=== PATIENT | male | born 1990 ===

== ENCOUNTER 2016-12-15 12:28 | Emergency (ER) | payer MEDICAID ==
[2016-12-15 12:41] VITALS: BP 125/83; PULSE 66; RESP 18; TEMP 97.7; O2SAT 98
--- NOTE | 2016-12-15 12:53 | ED PDOC ---
HPI: General Adult Time Seen by Provider: 12/15/16 12:35 History Per: Patient Additional Complaint(s): Pt. states for the past 2 weeks he's had atraumatic pain and numbness to the R middle and ring fingers. Pt. states pain is intermittent and seems to be worse at night. Further states that when he was 19 y/o he was diagnosed with carpal tunnel syndrome on the same hand but required no surgical treatment or physical therapy. Pt. is R hand dominant. Symptoms are present on both dorsal and palmar sides of hand. Denies fever, rash, trauma. Past Medical History Reviewed: Historical Data, Nursing Documentation, Vital Signs Vital Signs: Last Vital Signs Temp 97.7 F 12/15/16 12:39 Pulse 66 12/15/16 12:39 Resp 18 12/15/16 12:39 BP 125/83 12/15/16 12:39 Pulse Ox 98 12/15/16 12:39 - Family History Family History: States: No Known Family Hx - Home Medications Home Medications: Ambulatory Orders Medication Instructions Recorded Clotrimazole/Betamethasone Dip 1 cre TP BID #1 unit 02/08/16 [Clotrimazole-Betamethasone Dipropionate 0.05%] Naproxen [Naprosyn] 500 mg PO BID PRN #30 tab 12/15/16 - Allergies Allergies/Adverse Reactions: Allergies Allergy/AdvReac Type Severity Reaction Status Date / Time No Known Allergies Allergy Verified 02/08/16 20:52 Review of Systems ROS Statement: Except As Marked, All Systems Reviewed And Found Negative Physical Exam - Physical Exam Appears: Positive for: Well, Non-toxic, No Acute Distress Skin: Positive for: Normal Color, Warm. Negative for: Rash Extremity: Positive for: Normal ROM, Capillary Refill (< 2 seconds of RUE), Other (R hand and fingers without swelling, tenderness, erythema, warmth, break in skin integrity, rash; negative phalen's and tinel's sign) - ECG O2 Sat by Pulse Oximetry: 98 - Progress ED Course And Treament: Pt. instructed to f/u with Dr. Tate, hand specialist, for further evaluation. Also told that he may require MRI or nerve conduction studies. Disposition - Clinical Impression Clinical Impression: Paresthesias in right hand - Patient ED Disposition Is Patient to be Admitted: No - Disposition Referrals: Kiran Tate MD [Staff Provider] - [facility] [Outside] Cameron Andrade MD [Medical Doctor] - Disposition: Routine/Home Disposition Time: 12:50 Condition: STABLE Prescriptions: Naproxen [Naprosyn] 500 mg PO BID PRN #30 tab PRN Reason: Pain Instructions: Paresthesia (ED) Print Language: YI
== END 2016-12-15 13:07 | disposition home or self-care (01) ==
LOC: H.ER 12:28
DX: R20.9 Unspecified disturbances of skin sensation (principal)

== ENCOUNTER 2017-01-12 12:36 | Emergency (ER) | payer MEDICAID ==
[2017-01-12 13:00] VITALS: BP 118/57; PULSE 71; RESP 18; TEMP 98.2; O2SAT 97
--- NOTE | 2017-01-12 13:37 | ED PDOC ---
Lower Extremity Pain/Injury Time Seen by Provider: 01/12/17 13:02 Chief Complaint (Nursing): Lower Extremity Problem/Injury Chief Complaint (Provider): Right foot pain History Per: Patient History/Exam Limitations: no limitations Onset/Duration Of Symptoms: Days (2) Current Symptoms Are (Timing): Still Present Severity: Moderate Additional Complaint(s): Nadir Craig is a 26 y/o male presenting to the ER on 01/12/2017 with complaints of right foot pain x2 days. Patient states pain, which he rates as a 5/10, originated after a pile of wood fell on his foot while at work. He further states the pain gradually began to resolve on its own after he took Ibuprofen two days ago, but spontaneously appeared again, prompting him to seek medical evaluation. Patient reports pain is localized to his heel with no radiation to his ankle. Patient did not take any pain medications prior to arrival. Past Medical History Reviewed: Historical Data, Nursing Documentation, Vital Signs Vital Signs: Last Vital Signs Temp 98.2 F 01/12/17 12:57 Pulse 71 01/12/17 12:57 Resp 18 01/12/17 12:57 BP 118/57 L 01/12/17 12:57 Pulse Ox 97 01/12/17 12:57 - Medical History PMH: No Chronic Diseases - Surgical History Surgical History: No Surg Hx - Family History Family History: States: No Known Family Hx - Living Arrangements Living Arrangements: With Family - Social History Current smoker - smoking cessation education provided: No Alcohol: None Drugs: Denies - Home Medications Home Medications: Ambulatory Orders Medication Instructions Recorded Clotrimazole/Betamethasone Dip 1 cre TP BID #1 unit 02/08/16 [Clotrimazole-Betamethasone Dipropionate 0.05%] Naproxen [Naprosyn] 500 mg PO BID PRN #30 tab 12/15/16 - Allergies Allergies/Adverse Reactions: Allergies Allergy/AdvReac Type Severity Reaction Status Date / Time No Known Allergies Allergy Verified 01/12/17 12:56 Wells Criteria for PE - Wells Criteria for Pulmonary Embolism Clinical Signs and Symptoms of DVT: No P.E is #1 Diagnosis, or Equally Likely: No Heart Rate >100: No Immobilization at least 3 days;Surgery previous 4 weeks: No Previous, objectively diagnosed PE or DVT: No Hemoptysis: No Malignancy w/treatment within 6 months, or palliative: No Total Score: 0 Review of Systems ROS Statement: Except As Marked, All Systems Reviewed And Found Negative Musculoskeletal: Positive for: Foot Pain ((+) right foot ) Neurological: Negative for: Weakness, Numbness Physical Exam - Reviewed Nursing Documentation Reviewed: Yes Vital Signs Reviewed: Yes - Physical Exam Appears: Positive for: Non-toxic, No Acute Distress Skin: Positive for: Normal Color Eye Exam: Positive for: Normal appearance Extremity: Positive for: Normal ROM, Tenderness ((+) ttp to right heel region; nontender to dorsal aspect ), Other (resolving ecchymosis to right foot). Negative for: Deformity, Swelling Neurologic/Psych: Positive for: Alert, Oriented, Gait (steady ). Negative for: Motor/Sensory Deficits - ECG O2 Sat by Pulse Oximetry: 97 Pulse Ox Interpretation: Normal - Other Rad Right foot x-ray X-Ray: Interpreted by Me, Viewed By Me X-Ray Interpretation: no fx, no dis Medical Decision Making Medical Decision Makin:02 Initial Impression- Right foot pain; r/o fracture Initial Plan- * XR Right foot * Ibuprofen 600 mg PO 14:36: XR reviewed, shows no acute findings. Pt will be discharged routinely. Encouraged pt to elevate foot while resting, apply ice, and use Motrin if needed. Documented by Darrel Gonzales, acting as a scribe for Kala Grissom PA-C All medical record entries made by the Scribe were at my direction and personally dictated by me. I have reviewed the chart and agree that the record accurately reflects my personal performance of the history, physical exam, medical decision making, and the department course for this patient. I have also personally directed, reviewed, and agree with the discharge instructions and disposition. Procedures - Splinting Location: right foot Pre-Made Type: eduardo wrap, ortho shoe Pre-Proc Neuro Vasc Exam: normal Post-Proc Neuro Vasc Exam: normal Disposition - Clinical Impression Clinical Impression: Foot sprain, Foot contusion - Patient ED Disposition Is Patient to be Admitted: No Counseled Patient/Family Regarding: Studies Performed, Diagnosis, Need For Followup - Disposition Referrals: [facility] [Outside] Disposition: Routine/Home Disposition Time: 14:46 Condition: STABLE Additional Instructions: Ice, rest and elevate affected area. Take 3 over the counter 200 mg motrin tabs every 6 hrs for pain relief. Follow up with podiatry clinic in 2-3 days. Instructions: Foot Sprain (ED), Foot Contusion (ED)
--- NOTE | 2017-01-12 15:04 | RAD ---
PROCEDURE: Right foot dated 01/12/2017. HISTORY: trauma COMPARISON: None. FINDINGS: BONES: No evidence of acute displaced fracture nor dislocation. The osseous structures appear intact. JOINTS: Slight hammertoe deformities of the 2nd and to a lesser degree 3rd and 4th digits SOFT TISSUES: Normal. OTHER FINDINGS: None. IMPRESSION: No acute fracture seen.
== END 2017-01-12 14:55 | disposition home or self-care (01) ==
LOC: H.ER 12:36
DX: S90.31XA Contusion of right foot, initial encounter (principal); S93.601A Unspecified sprain of right foot, initial encounter; W22.8XXA Striking against or struck by other objects, initial encounter; Y99.0 Civilian activity done for income or pay

== ENCOUNTER 2017-01-23 20:24 | Emergency (ER) | payer MEDICAID ==
[2017-01-23 20:42] VITALS: BP 155/93; O2SAT 99
[2017-01-23] MEDS ORDERED: Sodium Chloride 0.9% 1,000 ML IV STA (21:16)
[2017-01-23 21:47] LABS: VENOUS BLOOD GAS PCO2 40 mmHg (40-60); VENOUS BLOOD PH 7.43 (7.32-7.43)
[2017-01-23 21:50] LABS: BASO % 0.4 % (0.0-2.0); EOS % 0.1 % (0.0-4.0); HEMATOCRIT 46.2 % (35.0-51.0); LYMPH # 1.1 K/uL (1.0-4.3); LYMPH % 16.3 % (20.0-40.0); MEAN CELL VOLUME 86.8 fl (80.0-94.0); MEAN CORPUSCULAR HEMOGLOBIN 29.4 pg (27.0-31.0); MEAN CORPUSCULAR HGB CONC 33.9 g/dL (33.0-37.0); MEAN PLATELET VOLUME 7.4 fl (7.2-11.7); MONO # 0.7 K/uL (0.0-0.8); MONO % 10.8 % (0.0-10.0); NEUT # 4.9 K/uL (1.8-7.0); NEUT % 72.4 % (50.0-75.0); NRBC % 0.1 % (0.0-0.0); RED CELL DISTRIBUTION WIDTH 13.2 % (11.5-14.5); WHITE BLOOD COUNT 6.8 K/uL (4.8-10.8)
[2017-01-23 22:05] LABS: ALB/GLOB RATIO 1.3 (1.0-2.1); ALKALINE PHOSPHATASE 53 U/L (38-126); ALT/SGPT 42 U/L (21-72); AST/SGOT 27 U/L (17-59); BILIRUBIN,TOTAL 0.4 mg/dl (0.2-1.3); BLOOD UREA NITROGEN 14 mg/dl (9-20); CALCIUM 9.1 mg/dL (8.4-10.2); CARBON DIOXIDE 26 mmol/L (22-30); CHLORIDE 101 mmol/L (98-107); GFR AFRICAN-AMERICAN > 60; GLUCOSE,RANDOM 124 mg/dL (75-110); POTASSIUM 3.6 MMOL/L (3.6-5.0); SODIUM 138 mmol/l (132-148); TOTAL PROTEIN 7.3 G/DL (6.3-8.2)
--- NOTE | 2017-01-23 22:09 | ED PDOC ---
HPI: General Adult Time Seen by Provider: 01/23/17 20:48 Chief Complaint (Nursing): Eye Problem History Per: Patient Additional Complaint(s): Pt. states for the past week he's had b/l eye redness and discharge. Over the past 2 days he's developed fever along with nasal congestion. Denies cough, facial pain, headache, rash, abdominal pain, N/V/D, eye pain, eye trauma, contact lens use. Past Medical History Reviewed: Historical Data, Nursing Documentation, Vital Signs Vital Signs: Last Vital Signs Temp 102 F H 01/23/17 21:24 Pulse 119 H 01/23/17 20:37 Resp 16 01/23/17 20:37 BP 155/93 H 01/23/17 20:37 Pulse Ox 99 01/23/17 22:42 - Family History Family History: States: No Known Family Hx - Home Medications Home Medications: Ambulatory Orders Medication Instructions Recorded Clotrimazole/Betamethasone Dip 1 cre TP BID #1 unit 02/08/16 [Clotrimazole-Betamethasone Dipropionate 0.05%] Naproxen [Naprosyn] 500 mg PO BID PRN #30 tab 12/15/16 Erythromycin 0.5% [Erythromycin] 1 applic BOTHEYES Q6 #1 tube 01/23/17 Naproxen [Naprosyn] 500 mg PO BID PRN #30 tab 01/23/17 - Allergies Allergies/Adverse Reactions: Allergies Allergy/AdvReac Type Severity Reaction Status Date / Time No Known Allergies Allergy Verified 01/23/17 20:37 Review of Systems ROS Statement: Except As Marked, All Systems Reviewed And Found Negative Constitutional: Positive for: Fever ENT: Positive for: Nose Congestion Physical Exam - Reviewed Nursing Documentation Reviewed: Yes Vital Signs Reviewed: Yes - Physical Exam Appears: Positive for: Well, Non-toxic, No Acute Distress Head Exam: Positive for: ATRAUMATIC, NORMAL INSPECTION, NORMOCEPHALIC Skin: Positive for: Normal Color, Warm. Negative for: Rash Eye Exam: Positive for: EOMI, Normal appearance, PERRL ENT: Positive for: TM Is/Are, Pharyngeal Erythema Neck: Positive for: Normal, Painless ROM Cardiovascular/Chest: Positive for: Regular Rate, Rhythm Respiratory: Positive for: CNT, Normal Breath Sounds Gastrointestinal/Abdominal: Positive for: Normal Exam, Soft. Negative for: Tenderness, Organomegaly Back: Positive for: Normal Inspection. Negative for: L CVA Tenderness, R CVA Tenderness Extremity: Positive for: Normal ROM Neurologic/Psych: Positive for: Alert, Oriented - Laboratory Results Result Diagrams: 01/23/17 21:30 01/23/17 21:30 Urine dip results: Positive for: Blood (trace), Protein (trace). Negative for: Leukocyte Esterase, Nitrate, Ketones, Glucose, Bilirubin - ECG O2 Sat by Pulse Oximetry: 99 - Progress ED Course And Treament: Labs ordered. IV NS bolus x 1 given. Tylenol 975mg PO given. Repeat temp: 98.3; HR: 92 Pt. reports feeling better. Disposition - Clinical Impression Clinical Impression: Viral syndrome, Conjunctivitis - Patient ED Disposition Is Patient to be Admitted: No - Disposition Referrals: [facility] [Outside] Disposition: Routine/Home Disposition Time: 23:07 Condition: IMPROVED Prescriptions: Erythromycin 0.5% [Erythromycin] 1 applic BOTHEYES Q6 #1 tube Naproxen [Naprosyn] 500 mg PO BID PRN #30 tab PRN Reason: Pain Instructions: Conjunctivitis (ED), Viral Syndrome (ED) Forms: [facility] ED School/Work Excuse
[2017-01-23 23:08] VITALS: PULSE 92; RESP 18
[2017-01-23 23:25] VITALS: TEMP 98
== END 2017-01-23 23:26 | disposition home or self-care (01) ==
LOC: H.ER 20:24
DX: H10.9 Unspecified conjunctivitis (principal); B34.9 Viral infection, unspecified; R50.9 Fever, unspecified